=== PATIENT | female | born 1965 | race Caucasian/White ===

== ENCOUNTER → 2018-05-04 | Outpatient (REF) | payer BC ==
[2018-05-04 20:38] LABS: CHLAMYDIA DNA AMPLIFICATION NEGATIVE (NEGATIVE); GC DNA AMPLIFICATION NEGATIVE (NEGATIVE)
== END ==
LOC: M SFHCLERA 10:03
PROVIDERS: ATTEND Nurse Practitioner Family
DX: N94.9 Unspecified condition associated with female genital organs and menstrual cycle (principal); N89.8 Other specified noninflammatory disorders of vagina

== ENCOUNTER → 2018-05-14 | Outpatient (REF) | payer BC ==
[2018-05-14 16:28] LABS: BASO # 0.2 10^3/uL (0.0-0.2); BASO % 1.5 % (0.0-1.0); EOS # 0.5 10^3/uL (0.0-0.50); EOS % 4.8 % (0.0-3.0); HEMATOCRIT 44.9 % (36.0-47.0); HEMOGLOBIN 15.3 g/dl (12.0-15.5); LYMPH # 3.4 10^3/uL (1.5-4.5); LYMPH % 32.6 % (24.0-44.0); MEAN CORPUSCULAR HEMOGLOBIN 31.6 pg (27.0-33.0); MEAN CORPUSCULAR HGB CONC 34.1 g/dl (32.0-36.5); MEAN CORPUSCULAR VOLUME 92.8 fl (80.0-96.0); MONO # 0.8 10^3/uL (0.0-0.8); MONO % 7.3 % (0.0-5.0); NEUTROPHILS # 5.6 10^3/uL (1.8-7.7); NEUTROPHILS % 53.3 % (36.0-66.0); PLATELET COUNT, AUTOMATED 353 10^3/uL (150-450); RED BLOOD COUNT 4.84 10^6/uL (4.00-5.40); WHITE BLOOD COUNT 10.4 10^3/uL (4.0-10.0)
[2018-05-14 16:32] LABS: ALBUMIN 3.8 GM/DL (3.2-5.2); ALT/SGPT 20 U/L (12-78); BILIRUBIN,TOTAL 0.2 MG/DL (0.2-1.0); BLOOD UREA NITROGEN 12 MG/DL (7-18); CARBON DIOXIDE LEVEL 27 MEQ/L (21-32); CHLORIDE LEVEL 109 MEQ/L (98-107); CREATININE FOR GFR 0.59 MG/DL (0.55-1.30); GLOMERULAR FILTRATION RATE > 60.0 (>51); GLUCOSE, FASTING 72 MG/DL (70-100); POTASSIUM SERUM 4.9 MEQ/L (3.5-5.1); SODIUM LEVEL 142 MEQ/L (136-145); TOTAL PROTEIN 6.7 GM/DL (6.4-8.2)
== END ==
LOC: M SFHCLERA 11:56
PROVIDERS: ATTEND Nurse Practitioner Family
DX: R03.0 Elevated blood-pressure reading, without diagnosis of hypertension (principal)

== ENCOUNTER 2018-05-22 20:17 | Emergency (ER) | payer BC ==
[~2018-05-22] VITALS: Ht 162.6 cm; Wt 97.3 kg
[2018-05-22 20:18] VITALS: BP 168/82
[2018-05-22] MEDS ORDERED: VALA500T5 (20:39)
[2018-05-22] MEDS ORDERED: ZOLM5TAB (20:39)
--- NOTE | 2018-05-22 21:54 | REP ---
Clinical: Trauma. Technique: AP, lateral, bilateral oblique views of the left ankle. Findings: Small corner fracture at the medial malleolus noted along with lateral soft tissue swelling. Ankle mortise appears intact. Impression: Small medial malleolus fracture and lateral swelling. Electronically Signed by Nicho Ruiz MD 05/22/2018 09:45 P
[2018-05-22] MEDS ORDERED: NORCOTAB PO ×2 (22:13→22:21)
[2018-05-22] MEDS ORDERED: PERCOCET 5MG/325MG TAB PO ONE (22:15)
[2018-05-22] MEDS ORDERED: NORCO 5/325MG TABLET (BULK FOR ED) PO ONE (22:15)
== END 2018-05-22 22:30 | disposition home or self-care (01) ==
LOC: M ED 20:17
DX: S93.402A Sprain of unspecified ligament of left ankle, initial encounter (principal); S82.52XA Displaced fracture of medial malleolus of left tibia, initial encounter for closed fracture; W00.1XXA Fall from stairs and steps due to ice and snow, initial encounter; Y92.018 Other place in single-family (private) house as the place of occurrence of the external cause; I10 Essential (primary) hypertension; Z79.899 Other long term (current) drug therapy; Z88.2 Allergy status to sulfonamides; Z88.8 Allergy status to other drugs, medicaments and biological substances

== ENCOUNTER → 2018-06-09 | Outpatient (REF) | payer BC ==
[~2018-06-09] MED LIST: NORCOTAB PO; VALA500T5; ZOLM5TAB
[2018-06-09 18:05] LABS: CHOLESTEROL RISK RATIO 5.26 (<5)
== END ==
LOC: M SFHCLERA 10:56
PROVIDERS: ATTEND Nurse Practitioner Family
DX: Z76.89 Persons encountering health services in other specified circumstances (principal)

== ENCOUNTER → 2018-07-29 | Outpatient (REF) | payer BC ==
[~2018-07-29] MED LIST changes: +HYDR-3715 PO; -NORCOTAB PO
[2018-07-31 14:14] LABS: HPV HYBRID CAPTURE II Positive (Negative)
== END ==
LOC: M SFHCWAGY 09:44
PROVIDERS: ATTEND Nurse Practitioner Family
DX: Z12.4 Encounter for screening for malignant neoplasm of cervix (principal)
CPT/HCPCS: 87624; G0123

== ENCOUNTER → 2018-07-29 | Outpatient (CLI) | payer BC ==
--- NOTE | 2018-07-29 10:17 | REPMRS ---
Patient History The patient states she had a clinical breast exam in 07/2018. Patient is postmenopausal. Family history of prostate cancer at age 50 or over in father, colorectal cancer at age 50 or over in maternal uncle. Took hormonal contraceptives for 35 years. Digital Woman Screen Mammo: July 29, 2018 - Exam #: [id number] Bilateral CC and MLO view(s) were taken. Technologist: Rosina Parham, Technologist Prior study comparison: May 09, 2015, digital woman screen mammo performed at [facility]. May 21, 2014, right breast digital mammo diagnostic unilateral, performed at [facility]. January 14, 2014, digital woman screen mammo performed at [facility]. FINDINGS: There are scattered fibroglandular densities. There has been no change in the appearance of the mammogram from the prior studies. There is a mild amount of scattered fibroglandular density which is fairly symmetric. There is no interval development of dominant mass, architectural distortion, or clustered microcalcification suggestive of malignancy. 3-D tomosynthesis shows no additional findings. Assessment: BI-RADS/ACR category 1 mammogram. Negative Mammogram. Recommendation Routine screening mammogram of both breasts in 1 year (for women over age 40). This patient's Lifetime Breast Cancer RIsk is estimated at 7.0 %. This mammogram was interpreted with the aid of an FDA-approved computer-aided dectection system. Electronically Signed By: Fabiano Rangel MD 07/29/18 1017
== END ==
LOC: M WHC 09:04
PROVIDERS: ATTEND Nurse Practitioner Family
DX: Z12.31 Encounter for screening mammogram for malignant neoplasm of breast (principal); Z80.42 Family history of malignant neoplasm of prostate; Z80.0 Family history of malignant neoplasm of digestive organs

== ENCOUNTER 2018-08-22 07:57 | Day surgery (SDC) | payer BC ==
[~2018-08-22] VITALS: Ht 162.6 cm; Wt 91.6 kg
[~2018-08-22 07:57] MED LIST changes: +CHLO125TA PO; +CVS1CAP2 PO; +LIDOCAINE 1% MDV 20ML VIAL SQ PRN; +LR 1,000 ML IV SCH; +OMEG100011 PO; +ONETAB33 PO; +TRAM50TA2 PO; +VALA1TAB2 PO
[2018-08-22] MEDS ORDERED: PROPOFOL 200 MG/20 ML VIAL As Ordered ONE ×3 (09:00→10:01)
[2018-08-22] MEDS ORDERED: LIDOCAINE 2% INJ 100 MG/5 ML SDV (FOR ANES.) As Ordered ONE (09:00)
[2018-08-22] MEDS ORDERED: MIDAZOLAM INJ 2 MG/2 ML VIAL (J2250) As Ordered ONE (09:01)
[2018-08-22] MEDS ORDERED: LIDOCAINE W/EPINEPHRINE 1% 20ML VIAL As Ordered ONE (09:01)
[2018-08-22] MEDS ORDERED: fentaNYL 100 MCG/2 ML INJECTION (J3010) As Ordered ONE (09:01)
[2018-08-22] MEDS ORDERED: NORCO, ANEXSIA 5/325MG TABLET (HYDROcodone/ACETAMINOPHEN) PO PRN (10:30)
[2018-08-22 11:39] VITALS: BP 116/76
--- NOTE | 2018-08-25 21:39 | RO ---
DATE OF PROCEDURE: 08/22/2018 PREOPERATIVE DIAGNOSIS: Left anterior neck lipoma. POSTOPERATIVE DIAGNOSIS: Left anterior neck lipoma. PROCEDURE: Excision of left anterior neck lipoma measuring 4 x 5 cm. It was a layered closure. SURGEON: Dr. Kevin Heaton UPHOLSTERED GOODS CRAFTER: None. ANESTHESIA: IV sedation with 10 mL of 1% lidocaine with epinephrine (epi) local. COMPLICATIONS: None. INDICATIONS FOR PROCEDURE: The patient is a 52-year female who presents with a large lipoma on the left anterior neck. She feels pressure in the neck with swallowing. Recommendation was to proceed with excision of the lipoma. Risks and benefits of the procedure not limited to but including bleeding, infection, damage to surrounding structures, and need for further surgery were discussed in detail with the patient, informed consent was obtained and procedure was planned. DESCRIPTION OF PROCEDURE: The patient was brought back to operating room three. After sufficient sedation, the neck was sterilely prepped and draped with chlorhexidine. Next, a time-out was done to confirm proper patient, proper procedure. Following that, local was injected in the skin and subcutaneous tissue overlying the left neck lipoma. Next, a horizontal incision was made about 5 cm long using a 15 blade scalpel. I carefully dissected through the subcutaneous tissues, the platysma, the strap muscles medially and laterally and entered the capsule lipoma. I was able to get my finger circumferentially around the anterior medial and lateral sides of the lipoma but inferiorly near the medial head of the clavicle on the left, it was densely adhered to the clavicle, the manubrium and the strap muscles. I dissected it as freely as possible; however, to avoid injury to surrounding structures, I removed the majority of the lipoma in small pieces. Once that was completed, the visible defect in her left anterior neck was resolved, the lipoma was obliterated into multiple small pieces, the majority of which was all removed. The cavity was irrigated with saline, cleaned out. There was no bleeding afterwards. The neck was then closed in a layered repair using a layer of interrupted #3-0 Vicryl sutures to reapproximate the strap muscles and the subcutaneous tissues and then a running #4-0 Vicryl subcuticular suture to reapproximate the skin. Once that was completed the neck was cleaned and dried. Steri-Strips, 4x4 and tape was applied thus ending procedure.
== END 2018-08-22 11:50 | disposition home or self-care (01) ==
LOC: M SDC 07:57
PROVIDERS: ATTEND Surgery
DX: D17.0 Benign lipomatous neoplasm of skin and subcutaneous tissue of head, face and neck (principal); I10 Essential (primary) hypertension; I34.0 Nonrheumatic mitral (valve) insufficiency; F17.210 Nicotine dependence, cigarettes, uncomplicated; Z88.2 Allergy status to sulfonamides; Z79.899 Other long term (current) drug therapy
CPT/HCPCS: 11426; 12042; 88304; J2250; J3010

== ENCOUNTER → 2018-08-25 | Outpatient (REF) | payer BC ==
[~2018-08-25] MED LIST changes: -LIDOCAINE 1% MDV 20ML VIAL SQ PRN; -LR 1,000 ML IV SCH
== END ==
LOC: M SFHCWAGY 11:56
PROVIDERS: ATTEND Nurse Practitioner Women's Health
DX: R87.810 Cervical high risk human papillomavirus (HPV) DNA test positive (principal); R87.612 Low grade squamous intraepithelial lesion on cytologic smear of cervix (LGSIL)

== ENCOUNTER → 2020-03-16 | Outpatient (REF) | payer BC ==
[~2020-03-16] MED LIST changes: -VALA1TAB2 PO; +VALA1TAB5 PO; -ZOLM5TAB; +ZOLM5TAB20
== END ==
LOC: M SFHCWAGY 13:23
PROVIDERS: ATTEND Nurse Practitioner Family
DX: Z12.4 Encounter for screening for malignant neoplasm of cervix (principal); R87.610 Atypical squamous cells of undetermined significance on cytologic smear of cervix (ASC-US); L85.9 Epidermal thickening, unspecified
CPT/HCPCS: 87624; G0123

== ENCOUNTER → 2020-03-16 | Outpatient (CLI) | payer BC ==
--- NOTE | 2020-03-16 10:12 | REPMRS ---
Patient History The patient states she had a clinical breast exam in February 2020. Family history of prostate cancer at age 50 or over in father, colorectal cancer at age 50 or over in maternal uncle. Took hormonal contraceptives for 35 years. 3D TOMOSYNTHESIS WAS PERFORMED. [facility] lifetime risk for breast cancer is 6.7%. Volpara breast density b. Digital Woman Screen Mammo: March 16, 2020 - Exam #: [id number] Bilateral CC and MLO view(s) were taken. Technologist: RT Angela Prior study comparison: July 29, 2018, bilateral digital woman screen mammo performed at [facility]. May 09, 2015, digital woman screen mammo performed at [facility]. FINDINGS: There are scattered fibroglandular densities. There has been no change in the appearance of the mammogram from the prior studies. There is a mild amount of residual fibroglandular tissue which is fairly symmetric. There is no interval development of dominant mass, architectural distortion, or clustered microcalcification suggestive of malignancy. Assessment: BI-RADS/ACR category 1 mammogram. Negative Mammogram. Recommendation Routine screening mammogram in 1 year (for women over age 40). This mammogram was interpreted with the aid of an FDA-approved computer-aided dectection system. Electronically Signed By: Kevin Adrian MD 03/16/20 1012
== END ==
LOC: M WHC 09:15
PROVIDERS: ATTEND Nurse Practitioner Family
DX: Z12.31 Encounter for screening mammogram for malignant neoplasm of breast (principal); Z92.0 Personal history of contraception

== ENCOUNTER → 2020-04-04 | Outpatient (REF) | payer BC | LOC: M SFHCWAGY 13:20 | PROVIDERS: ATTEND Nurse Practitioner Women's Health | DX: R87.610 Atypical squamous cells of undetermined significance on cytologic smear of cervix (ASC-US) (principal); R87.810 Cervical high risk human papillomavirus (HPV) DNA test positive ==

== ENCOUNTER → 2021-07-20 | Outpatient (CLI) | payer BC | LOC: M WHC 12:56 | PROVIDERS: ATTEND Advanced Practice Midwife | DX: Z12.31 Encounter for screening mammogram for malignant neoplasm of breast (principal); Z78.0 Asymptomatic menopausal state; Z85.41 Personal history of malignant neoplasm of cervix uteri; Z92.0 Personal history of contraception ==

== ENCOUNTER → 2021-07-20 | Outpatient (REF) | payer BC | LOC: M PLALAB 09:40 | PROVIDERS: ATTEND Advanced Practice Midwife | DX: R87.610 Atypical squamous cells of undetermined significance on cytologic smear of cervix (ASC-US) (principal); Z12.4 Encounter for screening for malignant neoplasm of cervix; N76.0 Acute vaginitis | CPT/HCPCS: 87624; G0123 ==

== ENCOUNTER → 2021-08-29 | Outpatient (REF) | payer BC | LOC: M SFHCWAGY 10:06 | PROVIDERS: ATTEND Obstetrics & Gynecology | DX: R87.610 Atypical squamous cells of undetermined significance on cytologic smear of cervix (ASC-US) (principal) ==

== ENCOUNTER → 2023-03-28 | Outpatient (REF) | payer OTHER | LOC: M PLALAB 09:24 | PROVIDERS: ATTEND Advanced Practice Midwife | DX: Z12.4 Encounter for screening for malignant neoplasm of cervix (principal); R87.612 Low grade squamous intraepithelial lesion on cytologic smear of cervix (LGSIL); Z87.42 Personal history of other diseases of the female genital tract | CPT/HCPCS: 87624; G0123 ==

== ENCOUNTER → 2023-04-18 | Outpatient (REF) | payer OTHER | LOC: M PLALAB 16:06 | PROVIDERS: ATTEND Advanced Practice Midwife | DX: R87.612 Low grade squamous intraepithelial lesion on cytologic smear of cervix (LGSIL) (principal); R87.810 Cervical high risk human papillomavirus (HPV) DNA test positive ==

== ENCOUNTER → 2023-07-19 | Outpatient (CLI) | payer OTHER ==
[2023-07-19 13:45] LABS: HEMOGLOBIN A1c 5.3 % (4.0-6.0)
[2023-07-19 13:56] LABS: CREATININE, URINE 52.3 MG/DL; MAU/CREAT RATIO 32.5 MCG/MG (0.0-30.0)
[2023-07-19 14:00] LABS: ALKALINE PHOSPHATASE 93 U/L (46-116); ALT/SGPT 19 U/L (7.0-40); AST/SGOT 11 U/L (<34); BILIRUBIN,TOTAL 0.2 MG/DL (0.3-1.2); BLOOD UREA NITROGEN 14 MG/DL (9-23); CALCIUM LEVEL 9.4 MG/DL (8.5-10.1); CARBON DIOXIDE LEVEL 30 MMOL/L (20-31); CHLORIDE LEVEL 109 MMOL/L (98-107); CHOLESTEROL LEVEL 184 MG/DL (<200); CHOLESTEROL RISK RATIO 4.47 (<5); GLOMERULAR FILTRATION RATE > 60.0 (>51); GLUCOSE, FASTING 81 MG/DL (60-100); HDL CHOLESTEROL 41.1 MG/DL (>40); LDL CHOLESTEROL 102.9 MG/DL (<100); NON-HDL-C 142.9 MG/DL; POTASSIUM SERUM 4.6 MMOL/L (3.5-5.1); SODIUM LEVEL 144 MMOL/L (136-145); TOTAL PROTEIN 6.7 G/DL (5.7-8.2); TRIGLYCERIDES LEVEL 200 MG/DL (<150)
[2023-07-19 14:01] LABS: THYROID STIMULATING HORMONE 1.397 uIU/ML (0.55-4.78)
== END ==
LOC: M PLALAB 11:23
PROVIDERS: ATTEND Family Medicine
DX: I10 Essential (primary) hypertension (principal); E66.9 Obesity, unspecified

== ENCOUNTER → 2023-07-26 | Outpatient (CLI) | payer OTHER | LOC: M RAD 14:49 | PROVIDERS: ATTEND Family Medicine | DX: M27.2 Inflammatory conditions of jaws (principal) ==

== ENCOUNTER → 2024-01-01 | Outpatient (CLI) | payer OTHER | LOC: M RAD 16:38 | PROVIDERS: ATTEND Family Medicine | DX: Z12.2 Encounter for screening for malignant neoplasm of respiratory organs (principal); F17.211 Nicotine dependence, cigarettes, in remission; Z53.9 Procedure and treatment not carried out, unspecified reason ==

== ENCOUNTER → 2024-02-11 | Outpatient (CLI) | payer OTHER | LOC: M RAD 06:53 | PROVIDERS: ATTEND Family Medicine | DX: F17.211 Nicotine dependence, cigarettes, in remission (principal); R91.8 Other nonspecific abnormal finding of lung field; J43.2 Centrilobular emphysema; I71.21 Aneurysm of the ascending aorta, without rupture ==

== ENCOUNTER → 2024-04-07 | Outpatient (CLI) | payer OTHER ==
[2024-04-07 10:53] LABS: BLOOD UREA NITROGEN 10 MG/DL (9-23); CALCIUM LEVEL 9.6 MG/DL (8.5-10.1); CARBON DIOXIDE LEVEL 29 MMOL/L (20-31); CHLORIDE LEVEL 107 MMOL/L (98-107); CREATININE FOR GFR 0.58 MG/DL (0.55-1.30); CREATININE, URINE 87.2 MG/DL; GLOMERULAR FILTRATION RATE > 60.0 (>51); GLUCOSE, FASTING 128 MG/DL (60-100); POTASSIUM SERUM 4.5 MMOL/L (3.5-5.1); SODIUM LEVEL 142 MMOL/L (136-145)
== END ==
LOC: M PLALAB 07:46
PROVIDERS: ATTEND Family Medicine
DX: I10 Essential (primary) hypertension (principal)

== ENCOUNTER → 2024-12-24 | Outpatient (REF) | payer OTHER | LOC: M PLALAB 13:01 | PROVIDERS: ATTEND Advanced Practice Midwife | DX: Z12.4 Encounter for screening for malignant neoplasm of cervix (principal); Z87.410 Personal history of cervical dysplasia; Z12.72 Encounter for screening for malignant neoplasm of vagina; R87.612 Low grade squamous intraepithelial lesion on cytologic smear of cervix (LGSIL) | CPT/HCPCS: 87624; G0123 ==

== ENCOUNTER → 2024-12-24 | Outpatient (CLI) | payer OTHER | LOC: M WHC 12:41 | PROVIDERS: ATTEND Advanced Practice Midwife | DX: Z12.31 Encounter for screening mammogram for malignant neoplasm of breast (principal); R92.313 Mammographic fatty tissue density, bilateral breasts ==

== ENCOUNTER → 2025-02-05 | Outpatient (REF) | payer OTHER | LOC: M SFHCWAGY 15:21 | PROVIDERS: ATTEND Advanced Practice Midwife | DX: R87.622 Low grade squamous intraepithelial lesion on cytologic smear of vagina (LGSIL) (principal); B97.7 Papillomavirus as the cause of diseases classified elsewhere; Z87.410 Personal history of cervical dysplasia; Z90.710 Acquired absence of both cervix and uterus ==